=== PATIENT | female | born 1985 | race African-American/Black ===

== ENCOUNTER 2024-01-25 16:24 | Emergency (ER) | payer OTHER ==
[~2024-01-25] VITALS: Ht 162.6 cm; Wt 52.0 kg
[2024-01-25 16:32] VITALS: O2SAT 99
[2024-01-25] MEDS ORDERED: TUSSL MT (18:09)
[2024-01-25] MEDS ORDERED: AZIT250T12 MT (18:09)
[2024-01-25] MEDS ORDERED: AMOX1TAB16 MT (18:09)
[2024-01-25] MEDS ORDERED: BENZ100C86 MT (18:09)
[2024-01-25 18:15] VITALS: BP 118/72; PULSE 85; RESP 19; TEMP 98
== END 2024-01-25 18:15 | disposition home or self-care (01) ==
LOC: ER 16:24
DX: J18.8 Other pneumonia, unspecified organism (principal); Z98.890 Other specified postprocedural states
CPT/HCPCS: 71045; 99283

== ENCOUNTER 2024-04-05 14:41 | Emergency (ER) | payer MEDICAID ==
[~2024-04-05] VITALS: Ht 167.6 cm; Wt 70.0 kg
[~2024-04-05 14:41] MED LIST: AMOX1TAB16 MT; AZIT250T12 MT; BENZ100C86 MT; TUSSL MT
[2024-04-05 14:49] VITALS: O2SAT 100
[2024-04-05 15:49] VITALS: BP 151/100; PULSE 89; RESP 18
[2024-04-05 15:51] LABS: BASOPHILS % 0.6 % (0.0-2.0); DIFFERENTIAL COMMENT 0; EOSINOPHILS % 0.4 % (0.0-5.0); HEMATOCRIT. 34.9 % (36.0-48.0); HEMOGLOBIN. 11.3 g/dL (12.0-16.0); LYMPHOCYTES % 34.8 % (20.0-50.0); MEAN CORPUSCULAR HEMOGLOBIN 25.5 pg (28.0-32.0); MEAN CORPUSCULAR HGB CONC 32.4 g/dL (31.0-37.0); MEAN CORPUSCULAR VOLUME 78.7 fL (81.0-99.0); MEAN PLATELET VOLUME 9.1 fl (7.4-10.4); MONOCYTES % 4.3 % (2.0-8.0); NEUTROPHILS % 59.9 % (40.0-76.0); PLATELET 225 x1000/uL (130-400); RED BLOOD CELL COUNT 4.43 mill/uL (4.2-5.4); RED CELL DISTRIBUTION WIDTH 14.4 % (11.6-14.6); WHITE BLOOD COUNT 4.2 x1000/uL (4.5-11.0)
[2024-04-05 15:57] LABS: CHLORIDE 106 mEq/L (98-107); POTASSIUM 3.7 mEq/L (3.5-5.1); SODIUM 141 mEq/L (136-145)
[2024-04-05 15:58] LABS: CARBON DIOXIDE 27 mEq/L (21-32)
[2024-04-05 16:03] LABS: CREATININE 0.7 mg/dL (0.6-1.0); GLUCOSE 88 mg/dL (70-105); UREA NITROGEN BLOOD 8 mg/dL (9-23)
[2024-04-05 16:05] LABS: ALANINE AMINOTRANSFERASE 33 IU/L (10-49); ALBUMIN 4.7 g/dL (3.2-4.8); ASPARTATE AMINOTRANSFERASE 67 IU/L (<34); BILIRUBIN TOTAL 0.6 mg/dL (0.1-1.0); PROTEIN TOTAL 7.5 g/dL (6.0-8.3)
[2024-04-05 16:08] VITALS: TEMP 98.2
[2024-04-05] MEDS: SODIUM CHLORIDE 0.9% 1,000 ML IV ONE (16:08)
[2024-04-05] MEDS: ACETAMINOPHEN 325MG TABLET PO PRN (16:08)
[2024-04-05 16:18] LABS: B-HCG QUANTITATIVE < 1 mIU/mL (<3)
== END 2024-04-05 17:24 | disposition left against medical advice (07) ==
LOC: ER 14:41
DX: R10.30 Lower abdominal pain, unspecified (principal); Z98.890 Other specified postprocedural states
CPT/HCPCS: 99284; 96360; 76830; 76856; 80053; 84702; 83690; 85025; 86850; 86900; 86901; 36415; J7030

== ENCOUNTER 2024-06-05 10:19 | Emergency (ER) | payer MEDICAID ==
[~2024-06-05] VITALS: Ht 167.6 cm; Wt 80.0 kg
[2024-06-05 10:21] VITALS: BP 175/98; PULSE 99; RESP 18; TEMP 98.4; O2SAT 99
[2024-06-05] MEDS: ACETAMINOPHEN 325MG TABLET PO ONE (11:02)
[2024-06-05] MEDS ORDERED: NAPR-1176 MT (11:48)
[2024-06-05] MEDS ORDERED: LIDO700A15 TP (11:48)
== END 2024-06-05 12:46 | disposition home or self-care (01) ==
LOC: ER 10:19
DX: M79.605 Pain in left leg (principal); Z79.899 Other long term (current) drug therapy; Z98.890 Other specified postprocedural states
CPT/HCPCS: 73590; 99283

== ENCOUNTER 2024-08-20 09:28 | Emergency (ER) | payer MEDICAID ==
[~2024-08-20] VITALS: Ht 162.6 cm; Wt 61.2 kg
[~2024-08-20 09:28] MED LIST changes: +LIDO700A15 TP; +NAPR-1176 MT
[2024-08-20 09:32] VITALS: O2SAT 100
[2024-08-20 09:34] VITALS: BP 137/83; PULSE 71; RESP 13; TEMP 98.2; O2SAT 99
[2024-08-20 10:34] LABS: BASOPHILS % 0.4 % (0.0-2.0); EOSINOPHILS % 0.1 % (0.0-5.0); HEMATOCRIT. 34.3 % (36.0-48.0); LYMPHOCYTES % 17.2 % (20.0-50.0); MEAN CORPUSCULAR HEMOGLOBIN 26.5 pg (28.0-32.0); MEAN CORPUSCULAR HGB CONC 32.2 g/dL (31.0-37.0); MEAN CORPUSCULAR VOLUME 82.5 fL (81.0-99.0); MEAN PLATELET VOLUME 8.5 fl (7.4-10.4); MONOCYTES % 2.9 % (2.0-8.0); NEUTROPHILS % 79.4 % (40.0-76.0); PLATELET 275 x1000/uL (130-400); RED BLOOD CELL COUNT 4.16 mill/uL (4.2-5.4); RED CELL DISTRIBUTION WIDTH 13.9 % (11.6-14.6); WHITE BLOOD COUNT 7.3 x1000/uL (4.5-11.0)
[2024-08-20 11:02] LABS: CHLORIDE 106 mEq/L (98-107); POTASSIUM 3.7 mEq/L (3.5-5.1)
[2024-08-20 11:03] LABS: CARBON DIOXIDE 24 mEq/L (21-32); SODIUM 138 mEq/L (136-145)
[2024-08-20 11:04] LABS: CALCIUM 9.1 mg/dL (8.7-10.4)
[2024-08-20 11:09] LABS: CREATININE 0.7 mg/dL (0.6-1.0); GLUCOSE 68 mg/dL (70-105); UREA NITROGEN BLOOD 10 mg/dL (9-23)
[2024-08-20 11:21] LABS: HCG SCREEN NEGATIVE
[2024-08-20 11:59] LABS: TROPONIN I HIGH SENSITIVITY < 4 ng/L (3.0-34)
== END 2024-08-20 12:34 | disposition home or self-care (01) ==
LOC: ER 09:28
DX: R55 Syncope and collapse (principal); Z79.899 Other long term (current) drug therapy; Z98.890 Other specified postprocedural states; Z86.59 Personal history of other mental and behavioral disorders
CPT/HCPCS: 36415; 80048; 82962; 84484; 84703; 85025; 93005; 99284